=== PATIENT | female | born 1985 | race Caucasian/White ===

== ENCOUNTER → 2021-10-19 | Outpatient (CLI) | payer BC, SELFPAY ==
[2021-10-19 16:58] LABS: Absolute Lymphocyte Count 1.31 X10^3/uL (0.83-4.51); Absolute Neutrophil Count 3.4 X10^3/uL (2.0-7.7); Basophil# 0.04 X10^3/uL; Basophil% 0.8 % (0-1); Eosinophil# 0.14 X10^3/uL; Eosinophils% 2.6 % (0-5); Hematocrit 41.1 % (37-47); Hemoglobin 13.9 g/dL (12.0-15.0); Lymphocyte # 1.31 X10^3/ul (0.83-4.51); Lymphocyte % 24.8 % (19-41); Mean Corp Hgb Conc 33.8 g/dL (32-36); Mean Corpuscular Hgb 33.1 pg (27.0-32.0); Mean Corpuscular Volume 97.9 fL (81-99); Mean Platelet Vol. 10.8 fl (6.2-12.0); Monocyte# 0.39 X10^3/uL; Monocyte% 7.4 % (0-10); NRBC Flagged by Analyzer 0 % (0-5); Neutrophil % 64.2 % (47-70); Platelet Count 266 K/mm3 (150-450); RBC Distribution Width CV 12.4 % (11.6-14.6); RBC Distribution Width SD 44.9 fl (35.1-43.9); White Blood Count 5.3 K/mm3 (4.4-11.0)
[2021-10-19 17:23] LABS: Follicle Stimulating Hormone 6.9 mIU/mL; T4 Free Direct 1.04 ng/dL (0.76-1.46); Thyroid Stim Hormone (TSH) 1.17 uIU/mL (0.358-3.74)
== END | disposition home or self-care (01) ==
LOC: WOBLAB 14:56
PROVIDERS: Visit Provider Obstetrics & Gynecology
DX: N93.9 Abnormal uterine and vaginal bleeding, unspecified (principal)
CPT/HCPCS: 36415; 82670; 83001; 83002; 84439; 84443; 85025

== ENCOUNTER → 2021-11-02 | Outpatient (CLI) | payer BC, SELFPAY ==
--- NOTE | 2021-11-02 14:30 | EMB_PTH ---
PATIENT: NELSON LANTIGUA LOC: [facility] U#:[id number] AGE/SX: 35/F ROOM: RE11/02/[address]: Dr. Burke Vaughan MD : 1985 BED: DIS: 11/02/2021 SPEC #: [id number] RECD: 11/02/21 15:00 STATUS: ALEX MANDY #: [id number] SU: 11/02/21 14:[address]: Burke Vaughan DEPT: SURGICAL PATHOLOGY RECD BY: Yousuf Tucker Tissues: Endometrium, NOS Procedures: Surgery Specimen Level IV HEADER OPERATION: Endometrial biopsy PRE-OP DIAGNOSIS: Abnormal uterine bleeding TISSUE SUBMITTED: Endometrial biopsy MICROSCOPIC DIAGNOSIS Endometrial biopsy: Proliferative endometrium. TYRESE:leonor 11/06/2021 MICROSCOPIC DESCRIPTION Slides are reviewed. GROSS DESCRIPTION Received is one container labeled with the patient's name and not further designated. The specimen consists of multiple fragments of pink hemorrhagic soft tissue that in aggregate measure 2 x 2.5 x 0.3 cm. The specimen is totally submitted in one cassette. / SJ:rg 11/03/2021 TC:4 CPT: 41500
== END | disposition home or self-care (01) ==
LOC: LABSPEC 15:01
PROVIDERS: Visit Provider Obstetrics & Gynecology
DX: N93.9 Abnormal uterine and vaginal bleeding, unspecified (principal)
CPT/HCPCS: 88305

== ENCOUNTER 2021-12-11 08:18 | Day surgery (SDC) | payer BC, SELFPAY ==
[2021-12-05 16:29] LABS: Magnesium 2.2 mg/dL (1.6-2.6)
[2021-12-05 16:53] LABS: Hematocrit 38.7 % (37-47); Mean Corp Hgb Conc 33.6 g/dL (32-36); Mean Corpuscular Volume 98.2 fL (81-99); Mean Platelet Vol. 10.8 fl (6.2-12.0); Platelet Count 217 K/mm3 (150-450); RBC Distribution Width CV 12.2 % (11.6-14.6); RBC Distribution Width SD 44.3 fl (35.1-43.9); Red Blood Count 3.94 M/mm3 (4.2-5.4); White Blood Count 6.6 K/mm3 (4.4-11.0)
[2021-12-11] VITALS (15 sets, daily range): BP systolic 101–120; BP diastolic 57–74; PULSE 68–104; RESP 8–23; TEMP 36.1–37.1; O2SAT 93–100; BMI 30.4
[2021-12-11] MEDS: Lactated Ringers 1,000 ML 40 ML IV ×2 (09:06→11:30)
[2021-12-11] MEDS: Magnesium 1 GM over 15 mins IV (09:07)
[2021-12-11] MEDS: Acetaminophen 500 MG Tablet 1000 MG PO ×2 (09:08→14:57)
[2021-12-11] MEDS: Gabapentin 600 MG Tablet PO (09:08)
--- NOTE | 2021-12-11 09:10 | PCM.HP.BLA ---
History and Physical Date of Admission: 12/11/21 Chief complaint: Abnormal uterine bleeding and dysmenorrhea History present illness: 36-year-old arrives for robotic assisted total laparoscopic hysterectomy bilateral salpingectomy and cystoscopy. No medical changes since last seen. All questions answered and consent signed. Obstetric history: Patient with a history of 2 's Past medical history: Anxiety, asthma Medications: Sertraline, albuterol Past surgical history: Tubal ligation, hysteroscopy, appendectomy, left elbow, knee tissue removed Allergies: Fioricet Social history: Vapes, denies alcohol or drug use Review of systems: Besides above pertinent positives a full review of systems was performed and found to be negative Physical exam: Blood pressure 112/72 pulse 89 respiratory rate 16 temp 98.8 Fahrenheit SPO2 99% on room air General: Normal-appearing no acute distress HEENT: Normocephalic atraumatic no cervical of adenopathy Cardiac/respiratory: No use of accessory muscles, nonlabored breathing Abdomen: Soft, nontender, nondistended Extremities: No peripheral edema normal peripheral pulses Psych: Normal affect normal demeanor nonpressured speech Assessment and plan: 36-year-old for robotic assisted total laparoscopic hysterectomy bilateral salpingectomy and cystoscopy for abnormal uterine bleeding and dysmenorrhea. Educated patient on procedure risk benefits alternatives. Patient states understanding and wished to proceed. All questions were answered and consent was signed.
[2021-12-11 09:35] LABS: Bedside Glucose 86 mg/dL (74-106)
[2021-12-11] MEDS: Cefazolin 2 GM in 0.9% Normal Saline 100 ML IV (10:03)
--- NOTE | 2021-12-11 10:30 | HYST_PTH ---
PATIENT: NELSON LANTIGUA LOC: [facility] [place] U#:[id number] AGE/SX: 36/F ROOM: RE12/11/[address]: Dr. Burke Vaughan MD : 1985 BED: DIS: 12/11/2021 SPEC #: [id number] RECD: 12/11/21 12:10 STATUS: ALEX REZachary #: [id number] SU: 12/11/21 10:[address]: Burke Vaughan DEPT: SURGICAL PATHOLOGY RECD BY: Yanet Hartmann ENTERED: 12/11/21 12:47 SP TYPE: HYSTERECT OTHR DR: DENZEL Horowitz Tissues: Uterus, NOS Procedures: Surgery Specimen Level V HEADER OPERATION: ERAS, lap robotic hysterectomy, bilateral salpingectomy, cysto PRE-OP DIAGNOSIS: Abnormal uterine bleeding and dysmenorrhea TISSUE SUBMITTED: Cervix, uterus and bilateral fallopian tubes MICROSCOPIC DIAGNOSIS Uterus, hysterectomy: Cervix ? nabothian cysts and mild chronic inflammation. Endometrium ? secretory endometrium. Myometrium ? focal superficial adenomyosis. Fallopian tubes - No pathologic change. AM:leonor 12/12/2021 MICROSCOPIC DESCRIPTION Slides are reviewed. GROSS DESCRIPTION Received in fixative is one container labeled with the patient's name and designated uterus. The specimen consists of a uterus with attached cervix and two detached fallopian tubes. The uterus with cervix measures 9 x 7 x 4 cm and weighs 101 gm. The ectocervix is unremarkable. The cervical os is oval in contour. The endocervical canal measures 3 cm in length and is grossly unremarkable. The triangular endometrial cavity measures 3.3 x 3 cm. The velvety, light guerrero endometrium measures up to 0.2 cm in thickness. The myometrium measures 2.2 cm in average thickness and is free of mass lesions. The fallopian tubes are similar in appearance with average lengths of 6 cm and average diameters of 0.7 cm. Fimbrial ends are present on both fallopian tubes. No mass lesions are identified. Boat Rigger sections are submitted in eight cassettes as follows: 1 - anterior cervix, 2 - posterior cervix, 3 & 4 - anterior uterine wall, 5 & 6 - posterior uterine wall, 7 - one fallopian tube, 8 - the other fallopian tube. / AM:leonor 12/11/2021 TC:5 CPT: 36952
--- NOTE | 2021-12-11 11:33 | DCINST_ITS ---
Discharge Instructions Diet Discharge Diet: No restrictions Activity Discharge Activity: Return to Normal Activity, May Drive, May Shower and - (No tub baths for 2 weeks) May resume sexual activity in: 4-6 weeks Lifting Restrictions: No lifting over 25 pounds for 2 to 3 weeks Dressing / Incision Call your doctor if your incision/area has: Continuous Slow Oozing and Foul Smelling Discharge Call your doctor if you observe: Fever of 101 or Higher, Shortness of breath and Chest pain Follow Up Care Please Follow Up With: Burke Vaughan MD When: 2 weeks postoperatively Test Results: Test results from this visit will be discussed in further detail at your follow- up appointment, if applicable. Discharge Plan Admission Attending Provider: Burke Vaughan Primary Care Provider: Gerri Hurst Discharge Orders/Prescriptions Prescriptions: New oxycodone 5 mg Tablet 5 mg PO Q6H PRN PRN (Reason: Pain Score 4-10/10) 5 Days Qty: 20 0RF Continued vitamin B complex Tablet 1 tab PO DAILY albuterol sulfate 90 mcg/actuation HFA aerosol inhaler 1 puff INHALATION Q4H PRN PRN (Reason: ASTHMA) sertraline 50 mg tablet 50 mg PO DAILY melatonin 10 mg Tablet 10 mg PO QHS PRN (Reason: Sleep) Referrals / Follow Up: Gerri Hurst PA [Primary Care Provider] - Disposition Disposition (needs filled in before D/C Order can be placed): Home, Self Care
--- NOTE | 2021-12-11 11:34 | OP.PCM_ITS ---
Report of Operation Date of Procedure: 12/11/21 Pre-Operative Diagnosis: Abnormal uterine bleeding, dysmenorrhea Post-Operative Diagnosis: Abnormal uterine bleeding, dysmenorrhea Surgery/Procedure Performed:: Robotic assisted total laparoscopic hysterectomy bilateral salpingectomy and cystoscopy Description of Surgical Findings:: Surgeon: Burke Vaughan MD Anesthesia: General EBL: 25 cc Urine output: 175 cc IV fluids: 1100 cc Complications: None Specimen: Cervix, uterus, bilateral fallopian tubes Findings: Bilateral fallopian tubes status post tubal ligation otherwise normal uterus, tubes, and ovaries. Post procedure cystoscopy with bilateral ureteral jets and no pathology noted. Consent: Patient with abnormal uterine bleeding and dysmenorrhea elects for robotic assisted total laparoscopic hysterectomy bilateral salpingectomy and cystoscopy. Patient understands the risk of the procedure include but are not limited to visceral or vascular injury, prolonged hospitalization, blood loss need for transfusion, reoperation. Patient state understanding wish to proceed. All questions were answered and consent was signed. Findings: Patient was brought back to the OR where general anesthesia found to be adequate. 2 g of Ancef were given for infection prophylaxis. Patient was paired draped in a dorsolithotomy position with yellowfin stirrups. Weighted speculum was placed in the posterior aspect of the vagina. Cervical dilators were used dilate the cervix. Uterine manipulator was placed. Varies needle was inserted at the umbilicus and water safety test was passed. 8 mm robotic trocar was inserted supraumbilical midline under direct visualization. Bilateral lower quadrant 8 mm trochars were inserted under direct visualization. 8 mm left upper quadrant trocar was inserted under direct visualization. Robot was d ocked. Laparoscope was inserted, bilateral ureters were identified and noted to be out of the operative field. Using a vessel sealer and monopolar scissors the left round ligament was identified cut and cauterized anterior and posterior portions of the broad ligament were dissected. Bladder flap was developed. Utero-ovarian ligament was identified cut and cauterized. Posterior leaf of the broad ligament was further dissected and the left uterine vessels were skeletonized, cut and cauterized, lateralized beyond the level of the colpotomy. Right round ligament was identified cut and cauterized. Anterior and posterior portions of the broad ligament were dissected. Bladder flap was completely developed and dissected beyond the level to colpotomy cup. Right utero-ovarian ligament was identified cut and cauterized. Posterior portion of the broad ligament was further dissected. Right uterine vessels were skeletonized, cut and cauterized, lateralized beyond the level to colpotomy cup. Circumferential colpotomy was made. Uterus cervix and bilateral fallopian tubes were removed from abdominal cavity and sent to pathology. Good hemostasis was noted. Colpotomy incision was closed in a continuous running fashion with the V-Loc suture. Good hemostasis was noted. Abdominal insufflation pressure was dropped and good hemostasis was noted. Floseal was placed over the colpotomy. Cystoscopy was performed and above findings were noted bilateral ureteral jets and no pathology. Trochars were removed under direct visualization. Good hemostasis was noted. Trocar sites were closed in a subcutaneous fashion. Good hemostasis was noted. All counts were correct x2. Patient tolerated procedure well and was brought to recovery in stable condition. tire shop mechanic: Kera Kellogg
[2021-12-11] MEDS: Ketorolac 30 MG/ML Syringe IV (12:27)
[2021-12-11] MEDS: oxyCODONE 5 MG Tablet PO (14:57)
== END 2021-12-11 16:32 | disposition home or self-care (01) ==
LOC: SDC 08:20 → AC 08:22
PROVIDERS: Anesthesiology; Referring Provider Obstetrics & Gynecology; Visit Provider Obstetrics & Gynecology
PROC: 0UT90ZZ Resection of Uterus, Open Approach (ICD-10-PCS; CPT 58571; principal; 2021-12-11 10:10)
DX: N80.03 Adenomyosis of the uterus (principal); N88.8 Other specified noninflammatory disorders of cervix uteri; N72 Inflammatory disease of cervix uteri; J45.909 Unspecified asthma, uncomplicated; F32.A Depression, unspecified; Z79.899 Other long term (current) drug therapy
CPT/HCPCS: 58571; S2900; 00840; 36415; 82962; 83735; 85027; 86850; 86900; 86901; 88307; J7120; J2405; J3475

== ENCOUNTER → 2024-02-17 | Outpatient (CLI) | payer BC, SELFPAY ==
--- NOTE | 2024-02-17 13:37 | ECHOD_ITS ---
Reason For Study: Syncope Procedure This was a 2D Doppler, Color Flow transthoracic echocardiogram. Exam performed in department. Left Ventricle Normal LV size. Left ventricular systolic function is normal. The estimated ejection fraction is 60 %. Normal diastololic function. No regional wall motion abnormalities noted. Right Ventricle Normal RV size. Normal systolic function. Atria The left and right atria are normal. Mitral Valve The mitral valve is structurally normal. No prolapse or stenosis seen. Trivial mitral valve insufficiency. Tricuspid Valve Normal tricuspid valve. Trivial tricuspid valve insufficiency. Unable to estimate RV systolic pressure due to insufficient tricuspid regurgitant envelope. Aortic Valve Trisinus/trileaflet aortic valve. Pulmonic Valve Normal pulmonic valve. Trivial pulmonic valve insufficiency. Great Vessels Normal aortic root. Pericardium/Pleural No pericardial effusion. MMode/2D Measurements & Calculations LVIDd: 4.7 cm IVSd: 0.82 cm Ao root diam: 3.0 cm LVIDs: 3.0 cm LVPWd: 0.72 cm RVDd: 2.8 cm FS: 36.1 % LAV(MOD-bp): 24.2 ml LVAd ap4: 27.2 cm2 SV(MOD-sp4): 50.5 ml LAV(MOD-bp) Indexed: 12.7 ml/m2 LVLd ap4: 7.9 cm SI(MOD-sp4): 26.5 ml/m2 LAV(MOD-sp2): 23.8 ml EDV(MOD-sp4): 78.1 ml LAV(MOD-sp4): 19.9 ml EDV(sp4-el): 80.0 ml LVAs ap4: 14.6 cm2 LVLs ap4: 6.6 cm ESV(MOD-sp4): 27.6 ml ESV(sp4-el): 27.3 ml EF(MOD-sp4): 64.6 % EF(sp4-el): 65.8 % SV(sp4-el): 52.7 ml LA A4 area: 11.5 cm2 LA dimension(2D): 3.4 cm RA A4 area: 11.0 cm2 TAPSE: 2.0 cm Time Measurements MV dec time: 0.21 sec Doppler Measurements & Calculations MV E max swapnil: 78.4 cm/sec Lat Peak E' Swapnil: 17.1 cm/sec Med Peak E' Swapnil: 12.3 cm/sec MV A max swapnil: 61.2 cm/sec E/E' lat: 4.6 E/E' med: 6.4 MV E/A: 1.3 MV V2 max: 78.8 cm/sec MV P1/2t max swapnil: 79.6 cm/sec Ao V2 max: 108.6 cm/sec MV max P.5 mmHg MV P1/2t: 65.8 msec Ao max P.7 mmHg MV V2 mean: 46.8 cm/sec Ao V2 mean: 76.9 cm/sec MV mean P.0 mmHg MV dec slope: 354.3 cm/sec2 Ao mean P.7 mmHg MV V2 VTI: 20.4 cm MVA(P1/2t): 3.3 cm2 Ao V2 VTI: 23.8 cm AV (velocity ratio): 0.92 LV V1 max: 100.2 cm/sec MR max swapnil: 477.5 cm/sec PA V2 max: 94.8 cm/sec LV V1 max P.0 mmHg MR max P.2 mmHg LV V1 mean P.5 mmHg LV V1 mean: 75.9 cm/sec LV V1 VTI: 21.9 cm ECHO/Echo Complete Interpretation Summary The estimated ejection fraction is 60 %. Normal diastololic function. Ordering Physician: Karthikeyan Maxwell Referring Physician: Karthikeyan Maxwell Performed By: Jayme Salazar [facility]
== END | disposition home or self-care (01) ==
LOC: CVS 13:34
PROVIDERS: Referring Provider Internal Medicine Cardiovascular Disease; Visit Provider Internal Medicine Cardiovascular Disease
DX: R55 Syncope and collapse (principal); R00.2 Palpitations
CPT/HCPCS: 93306